=== PATIENT | male | born 1980 | race Caucasian/White ===

== ENCOUNTER 2020-07-01 01:13 | Inpatient (IN) | payer MEDICARE, MEDICAID ==
[~2020-07-01] VITALS: Ht 177.8 cm; Wt 90.9 kg
[2020-07-01] MEDS ORDERED: BISACODYL 10 MG SUPP PR PRN (02:30)
[2020-07-01] MEDS ORDERED: POLYETHYLENE GLYCOL 17 GM PACKET PO PRN (02:30)
[2020-07-01] MEDS ORDERED: ONDANSETRON ODT 4 MG PO PRN (02:30)
[2020-07-01] MEDS ORDERED: DOCUSATE 100 MG CAPSULE PO PRN (02:30)
[2020-07-01 02:48] VITALS: BP 129/86
[2020-07-01] MEDS ORDERED: PLEASE ENTER ALLERGIES MC SCH (03:00)
[2020-07-01 04:10] VITALS: BP 129/86
[2020-07-01 04:27] LABS: MICROSCOPIC NOT IND
[2020-07-01 07:20] VITALS: BP 121/78
[2020-07-01] MEDS: NICOTINE 14MG/24 HR PATCH.TD24 TD SCH (08:20)
[2020-07-01 08:29] LABS: FREE T4 (FREE THYROXINE) 0.83 ng/dL (0.76-1.46); LDL/HDL RATIO 1.1 (0.5-3.0)
[2020-07-01] MEDS ORDERED: ZIPRASIDONE 20MG CAPSULE PO PRN (14:00)
[2020-07-01] MEDS: OLANZAPINE 10 MG TABLET PO SCH ×2 (16:06→20:54)
[2020-07-01] MEDS: LORazepam 1MG TABLET PO PRN (17:36)
[2020-07-01 19:50] VITALS: BP 123/81
[2020-07-02 07:22] VITALS: BP 113/81
[2020-07-02] MEDS: OLANZAPINE 10 MG TABLET PO SCH (08:54)
[2020-07-02] MEDS: NICOTINE 14MG/24 HR PATCH.TD24 TD SCH (08:56)
[2020-07-02 19:28] VITALS: BP 120/78
[2020-07-02] MEDS: LORazepam 1MG TABLET PO PRN (20:19)
[2020-07-02] MEDS: OLANZAPINE 5 MG TABLET PO SCH (20:20)
[2020-07-02] MEDS ORDERED: OLANZAPINE 10 MG TABLET ONE (20:21)
[2020-07-03 07:27] VITALS: BP 99/64
[2020-07-03] MEDS: OLANZAPINE 5 MG TABLET PO SCH ×2 (09:04→20:07)
[2020-07-03] MEDS: NICOTINE 14MG/24 HR PATCH.TD24 TD SCH (09:05)
[2020-07-03] MEDS: CARBAMAZEPINE 200 MG TABLET PO SCH ×2 (11:21→20:11)
[2020-07-03] MEDS: ACETAMINOPHEN 325 MG TABLET PO PRN ×2 (11:27→20:11)
[2020-07-03 18:01] VITALS: BP 121/83
[2020-07-04 07:43] VITALS: BP 109/64
[2020-07-04] MEDS: OLANZAPINE 5 MG TABLET PO SCH ×2 (08:33→20:17)
[2020-07-04] MEDS: CARBAMAZEPINE 200 MG TABLET PO SCH ×2 (08:33→20:16)
[2020-07-04] MEDS: NICOTINE 14MG/24 HR PATCH.TD24 TD SCH (08:35)
[2020-07-04] MEDS: LORazepam 1MG TABLET PO PRN (15:45)
[2020-07-04 19:54] VITALS: BP 127/80
[2020-07-05 07:00] VITALS: BP 102/66
[2020-07-05] MEDS: OLANZAPINE 5 MG TABLET PO SCH ×2 (08:31→20:21)
[2020-07-05] MEDS: CARBAMAZEPINE 200 MG TABLET PO SCH ×2 (08:31→20:21)
[2020-07-05] MEDS: NICOTINE 14MG/24 HR PATCH.TD24 TD SCH (08:33)
[2020-07-05] MEDS: LORazepam 1MG TABLET PO PRN (11:27)
[2020-07-05 19:54] VITALS: BP 101/65
[2020-07-06 07:22] VITALS: BP 115/71
[2020-07-06] MEDS: OLANZAPINE 5 MG TABLET PO SCH ×2 (08:53→20:36)
[2020-07-06] MEDS: CARBAMAZEPINE 200 MG TABLET PO SCH ×2 (08:53→20:36)
[2020-07-06] MEDS: NICOTINE 14MG/24 HR PATCH.TD24 TD SCH (08:55)
[2020-07-06] MEDS: ACETAMINOPHEN 325 MG TABLET PO PRN (08:59)
[2020-07-06 19:55] VITALS: BP 109/63
[2020-07-07 07:25] VITALS: BP 106/72
[2020-07-07] MEDS: CARBAMAZEPINE 200 MG TABLET PO SCH ×2 (08:30→20:08)
[2020-07-07] MEDS: OLANZAPINE 5 MG TABLET PO SCH ×2 (08:31→20:07)
[2020-07-07] MEDS: NICOTINE 14MG/24 HR PATCH.TD24 TD SCH (08:32)
[2020-07-07] MEDS ORDERED: OLANZAPINE 10 MG TABLET ONE (08:35)
[2020-07-07 19:49] VITALS: BP 117/62
[2020-07-07] MEDS: LORazepam 1MG TABLET PO PRN (20:08)
[2020-07-08] MEDS: LORazepam 1MG TABLET PO PRN (00:19)
[2020-07-08 07:20] VITALS: BP 110/71
[2020-07-08] MEDS: OLANZAPINE 5 MG TABLET PO SCH ×2 (08:41→20:26)
[2020-07-08] MEDS: CARBAMAZEPINE 200 MG TABLET PO SCH ×2 (08:41→20:26)
[2020-07-08] MEDS: NICOTINE 14MG/24 HR PATCH.TD24 TD SCH (08:44)
[2020-07-08] MEDS: HALOPERIDOL 5 MG TABLET PO SCH ×3 (16:00→20:26)
[2020-07-08 19:21] VITALS: BP 117/78
[2020-07-09 07:00] VITALS: BP 93/61
[2020-07-09] MEDS: CARBAMAZEPINE 200 MG TABLET PO SCH ×2 (08:34→20:06)
[2020-07-09] MEDS: HALOPERIDOL 5 MG TABLET PO SCH ×3 (08:34→20:06)
[2020-07-09] MEDS: OLANZAPINE 5 MG TABLET PO SCH ×2 (08:34→20:06)
[2020-07-09] MEDS: NICOTINE 14MG/24 HR PATCH.TD24 TD SCH (08:35)
[2020-07-09] MEDS: LORazepam 1MG TABLET PO PRN (15:01)
[2020-07-09 19:38] VITALS: BP 126/82
[2020-07-10 07:13] VITALS: BP 116/73
[2020-07-10] MEDS: CARBAMAZEPINE 200 MG TABLET PO SCH ×2 (08:21→20:27)
[2020-07-10] MEDS: OLANZAPINE 5 MG TABLET PO SCH ×2 (08:21→20:27)
[2020-07-10] MEDS: HALOPERIDOL 5 MG TABLET PO SCH ×3 (08:21→20:27)
[2020-07-10] MEDS: NICOTINE 14MG/24 HR PATCH.TD24 TD SCH (08:22)
[2020-07-10] MEDS: LORazepam 1MG TABLET PO PRN ×2 (16:42→21:14)
[2020-07-10 19:32] VITALS: BP 135/83
[2020-07-11 07:03] VITALS: BP 117/72
[2020-07-11] MEDS: OLANZAPINE 5 MG TABLET PO SCH ×2 (09:05→20:04)
[2020-07-11] MEDS: HALOPERIDOL 5 MG TABLET PO SCH ×3 (09:05→20:04)
[2020-07-11] MEDS: CARBAMAZEPINE 200 MG TABLET PO SCH ×2 (09:05→20:04)
[2020-07-11] MEDS: NICOTINE 14MG/24 HR PATCH.TD24 TD SCH (09:06)
[2020-07-11] MEDS: LORazepam 1MG TABLET PO PRN (15:30)
[2020-07-11 19:51] VITALS: BP 135/84
[2020-07-12 07:28] VITALS: BP 124/78
[2020-07-12] MEDS: CARBAMAZEPINE 200 MG TABLET PO SCH ×2 (08:22→19:59)
[2020-07-12] MEDS: NICOTINE 14MG/24 HR PATCH.TD24 TD SCH (08:23)
[2020-07-12] MEDS: OLANZAPINE 5 MG TABLET PO SCH ×2 (08:23→19:59)
[2020-07-12] MEDS: HALOPERIDOL 5 MG TABLET PO SCH ×3 (08:23→20:00)
[2020-07-12] MEDS: LORazepam 1MG TABLET PO PRN ×2 (16:41→20:50)
[2020-07-12 19:45] VITALS: BP 153/92
[2020-07-12] MEDS: ACETAMINOPHEN 325 MG TABLET PO PRN (21:16)
[2020-07-13 07:57] VITALS: BP 121/72
[2020-07-13] MEDS: OLANZAPINE 5 MG TABLET PO SCH ×2 (08:14→20:23)
[2020-07-13] MEDS: CARBAMAZEPINE 200 MG TABLET PO SCH ×2 (08:15→20:23)
[2020-07-13] MEDS: NICOTINE 14MG/24 HR PATCH.TD24 TD SCH (08:15)
[2020-07-13] MEDS: HALOPERIDOL 5 MG TABLET PO SCH ×3 (08:15→20:23)
[2020-07-13] MEDS: LORazepam 1MG TABLET PO PRN (14:22)
[2020-07-13 20:02] VITALS: BP 145/76
[2020-07-14 07:00] VITALS: BP 122/82
[2020-07-14] MEDS: NICOTINE 14MG/24 HR PATCH.TD24 TD SCH (09:14)
[2020-07-14] MEDS: LORazepam 1MG TABLET PO PRN ×2 (09:15→21:48)
[2020-07-14] MEDS: OLANZAPINE 5 MG TABLET PO SCH ×2 (09:15→20:17)
[2020-07-14] MEDS: CARBAMAZEPINE 200 MG TABLET PO SCH ×2 (09:15→20:17)
[2020-07-14] MEDS: ACETAMINOPHEN 325 MG TABLET PO PRN (09:15)
[2020-07-14] MEDS: HALOPERIDOL 5 MG TABLET PO SCH ×3 (09:16→20:16)
[2020-07-14 20:07] VITALS: BP 122/87
[2020-07-15 07:28] VITALS: BP 110/78
[2020-07-15] MEDS: OLANZAPINE 5 MG TABLET PO SCH ×2 (09:15→20:32)
[2020-07-15] MEDS: NICOTINE 14MG/24 HR PATCH.TD24 TD SCH (09:15)
[2020-07-15] MEDS: LORazepam 1MG TABLET PO PRN ×2 (09:16→17:50)
[2020-07-15] MEDS: HALOPERIDOL 5 MG TABLET PO SCH ×3 (09:16→23:56)
[2020-07-15] MEDS: CARBAMAZEPINE 200 MG TABLET PO SCH ×2 (09:16→20:32)
[2020-07-15 19:07] VITALS: BP 128/85
[2020-07-16 07:36] VITALS: BP 135/82
[2020-07-16] MEDS: ACETAMINOPHEN 325 MG TABLET PO PRN (07:42)
[2020-07-16] MEDS: HALOPERIDOL 5 MG TABLET PO SCH ×3 (08:31→20:44)
[2020-07-16] MEDS: NICOTINE 14MG/24 HR PATCH.TD24 TD SCH (08:31)
[2020-07-16] MEDS: OLANZAPINE 5 MG TABLET PO SCH ×2 (08:31→20:43)
[2020-07-16] MEDS: CARBAMAZEPINE 200 MG TABLET PO SCH ×2 (08:32→20:44)
[2020-07-16] MEDS: LORazepam 1MG TABLET PO PRN (16:32)
[2020-07-16] MEDS ORDERED: HALOPERIDOL 5 MG TABLET PO ONE (16:53)
[2020-07-16] MEDS ORDERED: LORazepam 1MG TABLET PO ONE (16:54)
[2020-07-16] MEDS ORDERED: HALOPERIDOL 2 MG/ML ORAL SOL PO SCH (17:00)
[2020-07-16] MEDS ORDERED: HALOPERIDOL 1 MG TABLET PO SCH (17:00)
[2020-07-16 19:15] VITALS: BP 148/84
[2020-07-17] MEDS: LORazepam 1MG TABLET PO PRN ×2 (00:25→17:01)
[2020-07-17 07:41] VITALS: BP 108/71
[2020-07-17] MEDS: CARBAMAZEPINE 200 MG TABLET PO SCH ×2 (08:48→20:08)
[2020-07-17] MEDS: ACETAMINOPHEN 325 MG TABLET PO PRN ×2 (08:48→17:54)
[2020-07-17] MEDS: OLANZAPINE 5 MG TABLET PO SCH ×2 (08:49→20:09)
[2020-07-17] MEDS: HALOPERIDOL 5 MG TABLET PO SCH ×3 (08:49→20:09)
[2020-07-17] MEDS: NICOTINE 14MG/24 HR PATCH.TD24 TD SCH (08:49)
[2020-07-17 19:30] VITALS: BP 125/85
[2020-07-18 07:14] VITALS: BP 123/83
[2020-07-18] MEDS: CARBAMAZEPINE 200 MG TABLET PO SCH ×2 (09:42→20:45)
[2020-07-18] MEDS: ACETAMINOPHEN 325 MG TABLET PO PRN (09:42)
[2020-07-18] MEDS: OLANZAPINE 5 MG TABLET PO SCH (09:43)
[2020-07-18] MEDS: NICOTINE 14MG/24 HR PATCH.TD24 TD SCH (09:43)
[2020-07-18] MEDS: HALOPERIDOL 5 MG TABLET PO SCH ×3 (09:43→20:47)
[2020-07-18] MEDS: TRIHEXYPHENIDYL 2MG TABLET PO SCH ×2 (15:57→20:45)
[2020-07-18 19:28] VITALS: BP 152/92
[2020-07-18] MEDS: LORazepam 1MG TABLET PO PRN (22:59)
[2020-07-19 07:29] VITALS: BP 130/88
[2020-07-19] MEDS: TRIHEXYPHENIDYL 2MG TABLET PO SCH ×3 (09:00→20:40)
[2020-07-19] MEDS: CARBAMAZEPINE 200 MG TABLET PO SCH ×2 (09:00→20:41)
[2020-07-19] MEDS: LORazepam 1MG TABLET PO PRN ×2 (09:00→20:41)
[2020-07-19] MEDS: HALOPERIDOL 5 MG TABLET PO SCH (09:00)
[2020-07-19] MEDS: ACETAMINOPHEN 325 MG TABLET PO PRN ×2 (09:01→17:41)
[2020-07-19] MEDS: NICOTINE 14MG/24 HR PATCH.TD24 TD SCH (09:01)
[2020-07-19] MEDS: OLANZAPINE 5 MG TABLET PO SCH ×2 (11:46→20:41)
[2020-07-19 19:50] VITALS: BP 130/93
[2020-07-20] MEDS: CARBAMAZEPINE 200 MG TABLET PO SCH ×2 (07:32→20:28)
[2020-07-20] MEDS: ACETAMINOPHEN 325 MG TABLET PO PRN (07:32)
[2020-07-20] MEDS: TRIHEXYPHENIDYL 2MG TABLET PO SCH ×2 (07:32→20:27)
[2020-07-20] MEDS: LORazepam 1MG TABLET PO PRN ×2 (07:32→23:53)
[2020-07-20] MEDS: OLANZAPINE 5 MG TABLET PO SCH ×2 (07:32→20:28)
[2020-07-20] MEDS: NICOTINE 14MG/24 HR PATCH.TD24 TD SCH (07:32)
[2020-07-20 07:42] VITALS: BP 129/85
[2020-07-20 19:18] VITALS: BP 143/84
[2020-07-21 07:40] VITALS: BP 145/90
[2020-07-21] MEDS: NICOTINE 14MG/24 HR PATCH.TD24 TD SCH (08:30)
[2020-07-21] MEDS: TRIHEXYPHENIDYL 2MG TABLET PO SCH ×2 (08:30→20:33)
[2020-07-21] MEDS: ACETAMINOPHEN 325 MG TABLET PO PRN ×2 (08:31→18:05)
[2020-07-21] MEDS: CARBAMAZEPINE 200 MG TABLET PO SCH ×2 (08:31→20:33)
[2020-07-21] MEDS: OLANZAPINE 5 MG TABLET PO SCH ×2 (08:31→20:33)
[2020-07-21] MEDS: LORazepam 1MG TABLET PO PRN (18:05)
[2020-07-21 19:25] VITALS: BP 128/87
[2020-07-22 07:27] VITALS: BP 117/79
[2020-07-22] MEDS: TRIHEXYPHENIDYL 2MG TABLET PO SCH ×2 (08:33→20:25)
[2020-07-22] MEDS: OLANZAPINE 5 MG TABLET PO SCH ×2 (08:33→20:25)
[2020-07-22] MEDS: NICOTINE 14MG/24 HR PATCH.TD24 TD SCH (08:34)
[2020-07-22] MEDS: CARBAMAZEPINE 200 MG TABLET PO SCH ×2 (08:34→20:25)
[2020-07-22] MEDS: LORazepam 1MG TABLET PO PRN (15:23)
[2020-07-22 19:34] VITALS: BP 126/92
[2020-07-23 07:32] VITALS: BP 120/76
[2020-07-23] MEDS: OLANZAPINE 5 MG TABLET PO SCH ×2 (09:06→20:15)
[2020-07-23] MEDS: CARBAMAZEPINE 200 MG TABLET PO SCH ×2 (09:06→20:15)
[2020-07-23] MEDS: TRIHEXYPHENIDYL 2MG TABLET PO SCH ×2 (09:06→20:15)
[2020-07-23] MEDS: NICOTINE 14MG/24 HR PATCH.TD24 TD SCH (10:31)
[2020-07-23] MEDS: LORazepam 1MG TABLET PO PRN ×2 (11:27→19:17)
[2020-07-23] MEDS: HALOPERIDOL 5 MG TABLET PO PRN (19:30)
[2020-07-23 19:34] VITALS: BP 132/92
[2020-07-24 07:38] VITALS: BP 140/85
[2020-07-24] MEDS: OLANZAPINE 5 MG TABLET PO SCH ×2 (09:43→21:11)
[2020-07-24] MEDS: CARBAMAZEPINE 200 MG TABLET PO SCH ×2 (09:44→21:11)
[2020-07-24] MEDS: TRIHEXYPHENIDYL 2MG TABLET PO SCH ×2 (09:45→21:11)
[2020-07-24] MEDS: NICOTINE 14MG/24 HR PATCH.TD24 TD SCH (09:47)
[2020-07-24] MEDS: LORazepam 1MG TABLET PO PRN (09:51)
[2020-07-24 19:24] VITALS: BP 114/81
[2020-07-25 07:49] VITALS: BP 116/79
[2020-07-25] MEDS: OLANZAPINE 5 MG TABLET PO SCH ×2 (08:38→21:02)
[2020-07-25] MEDS: CARBAMAZEPINE 200 MG TABLET PO SCH ×2 (08:38→21:02)
[2020-07-25] MEDS: TRIHEXYPHENIDYL 2MG TABLET PO SCH ×2 (08:38→21:02)
[2020-07-25] MEDS: NICOTINE 14MG/24 HR PATCH.TD24 TD SCH (08:40)
[2020-07-25] MEDS: LORazepam 1MG TABLET PO PRN ×2 (15:08→19:32)
[2020-07-25 19:30] VITALS: BP 137/97
[2020-07-25] MEDS: ACETAMINOPHEN 325 MG TABLET PO PRN (19:32)
[2020-07-26 07:42] VITALS: BP 121/76
[2020-07-26] MEDS: CARBAMAZEPINE 200 MG TABLET PO SCH ×2 (09:15→20:14)
[2020-07-26] MEDS: TRIHEXYPHENIDYL 2MG TABLET PO SCH ×2 (09:15→20:14)
[2020-07-26] MEDS: OLANZAPINE 5 MG TABLET PO SCH ×2 (09:15→20:14)
[2020-07-26] MEDS: NICOTINE 14MG/24 HR PATCH.TD24 TD SCH (09:16)
[2020-07-26] MEDS: ACETAMINOPHEN 325 MG TABLET PO PRN (15:26)
[2020-07-26] MEDS: LORazepam 1MG TABLET PO PRN (19:18)
[2020-07-26 19:30] VITALS: BP 103/69
[2020-07-27 07:37] VITALS: BP 125/89
[2020-07-27] MEDS: LORazepam 1MG TABLET PO PRN ×2 (07:59→13:50)
[2020-07-27] MEDS: TRIHEXYPHENIDYL 2MG TABLET PO SCH ×2 (08:31→21:11)
[2020-07-27] MEDS: CARBAMAZEPINE 200 MG TABLET PO SCH ×2 (08:31→21:11)
[2020-07-27] MEDS: OLANZAPINE 5 MG TABLET PO SCH ×2 (08:32→21:11)
[2020-07-27] MEDS: NICOTINE 14MG/24 HR PATCH.TD24 TD SCH (10:21)
[2020-07-27 19:30] VITALS: BP 134/80
[2020-07-28 07:32] VITALS: BP 116/78
[2020-07-28] MEDS: TRIHEXYPHENIDYL 2MG TABLET PO SCH ×2 (08:00→20:16)
[2020-07-28] MEDS: NICOTINE 14MG/24 HR PATCH.TD24 TD SCH (08:34)
[2020-07-28] MEDS: OLANZAPINE 5 MG TABLET PO SCH ×2 (08:35→20:16)
[2020-07-28] MEDS: CARBAMAZEPINE 200 MG TABLET PO SCH ×2 (08:35→20:16)
[2020-07-28] MEDS: HALOPERIDOL 5 MG TABLET PO PRN (16:30)
[2020-07-28] MEDS: LORazepam 1MG TABLET PO PRN ×2 (17:57→22:07)
[2020-07-28 19:55] VITALS: BP 138/95
[2020-07-29 07:43] VITALS: BP 111/78
[2020-07-29] MEDS: TRIHEXYPHENIDYL 2MG TABLET PO SCH ×2 (09:18→20:21)
[2020-07-29] MEDS: OLANZAPINE 5 MG TABLET PO SCH ×2 (09:18→20:21)
[2020-07-29] MEDS: CARBAMAZEPINE 200 MG TABLET PO SCH ×2 (09:18→20:21)
[2020-07-29] MEDS: LORazepam 1MG TABLET PO PRN ×2 (09:18→18:23)
[2020-07-29] MEDS: NICOTINE 14MG/24 HR PATCH.TD24 TD SCH (09:21)
[2020-07-29] MEDS: ACETAMINOPHEN 325 MG TABLET PO PRN ×2 (10:57→18:26)
[2020-07-29 19:39] VITALS: BP 145/94
[2020-07-30 07:27] VITALS: BP 116/79
[2020-07-30] MEDS: OLANZAPINE 5 MG TABLET PO SCH ×2 (08:30→20:18)
[2020-07-30] MEDS: CARBAMAZEPINE 200 MG TABLET PO SCH ×2 (08:30→20:18)
[2020-07-30] MEDS: TRIHEXYPHENIDYL 2MG TABLET PO SCH ×2 (08:30→20:18)
[2020-07-30] MEDS: NICOTINE 14MG/24 HR PATCH.TD24 TD SCH (08:32)
[2020-07-30] MEDS: LORazepam 1MG TABLET PO PRN (11:42)
[2020-07-30 19:35] VITALS: BP 137/92
[2020-07-30] MEDS: ACETAMINOPHEN 325 MG TABLET PO PRN (19:41)
[2020-07-31] MEDS: LORazepam 1MG TABLET PO PRN ×2 (07:35→15:07)
[2020-07-31] MEDS: ACETAMINOPHEN 325 MG TABLET PO PRN (07:36)
[2020-07-31 07:54] VITALS: BP 117/75
[2020-07-31] MEDS: OLANZAPINE 5 MG TABLET PO SCH ×2 (08:34→20:02)
[2020-07-31] MEDS: CARBAMAZEPINE 200 MG TABLET PO SCH ×2 (08:34→20:02)
[2020-07-31] MEDS: TRIHEXYPHENIDYL 2MG TABLET PO SCH ×2 (08:34→20:02)
[2020-07-31] MEDS: NICOTINE 14MG/24 HR PATCH.TD24 TD SCH (08:36)
[2020-07-31 20:39] VITALS: BP 113/68
[2020-08-01 07:16] VITALS: BP 116/81
[2020-08-01] MEDS: OLANZAPINE 5 MG TABLET PO SCH ×2 (09:20→20:07)
[2020-08-01] MEDS: TRIHEXYPHENIDYL 2MG TABLET PO SCH ×2 (09:20→20:06)
[2020-08-01] MEDS: CARBAMAZEPINE 200 MG TABLET PO SCH ×2 (09:20→20:06)
[2020-08-01] MEDS: NICOTINE 14MG/24 HR PATCH.TD24 TD SCH (09:21)
[2020-08-01] MEDS: LORazepam 1MG TABLET PO PRN ×2 (09:21→15:53)
[2020-08-01] MEDS: ACETAMINOPHEN 325 MG TABLET PO PRN (09:51)
[2020-08-01] MEDS: HALOPERIDOL 5 MG TABLET PO PRN (15:53)
[2020-08-01 19:33] VITALS: BP 148/89
[2020-08-02 07:30] VITALS: BP 123/79
[2020-08-02] MEDS: CARBAMAZEPINE 200 MG TABLET PO SCH ×2 (08:53→19:58)
[2020-08-02] MEDS: TRIHEXYPHENIDYL 2MG TABLET PO SCH ×2 (08:53→19:57)
[2020-08-02] MEDS: OLANZAPINE 5 MG TABLET PO SCH ×2 (08:53→19:58)
[2020-08-02] MEDS: NICOTINE 14MG/24 HR PATCH.TD24 TD SCH (08:53)
[2020-08-02] MEDS: LORazepam 1MG TABLET PO PRN ×2 (08:53→17:26)
[2020-08-02] MEDS: ACETAMINOPHEN 325 MG TABLET PO PRN ×2 (09:15→20:55)
[2020-08-02] MEDS: HALOPERIDOL 5 MG TABLET PO PRN (18:20)
[2020-08-02 19:52] VITALS: BP 130/84
[2020-08-03 07:35] VITALS: BP 116/83
[2020-08-03] MEDS: LORazepam 1MG TABLET PO PRN ×2 (07:40→19:52)
[2020-08-03] MEDS: ACETAMINOPHEN 325 MG TABLET PO PRN ×2 (07:42→19:52)
[2020-08-03] MEDS: NICOTINE 14MG/24 HR PATCH.TD24 TD SCH (08:29)
[2020-08-03] MEDS: CARBAMAZEPINE 200 MG TABLET PO SCH ×2 (08:30→19:52)
[2020-08-03] MEDS: OLANZAPINE 5 MG TABLET PO SCH ×2 (08:31→19:52)
[2020-08-03] MEDS: TRIHEXYPHENIDYL 2MG TABLET PO SCH ×2 (08:31→19:52)
[2020-08-03 19:36] VITALS: BP 128/85
[2020-08-03] MEDS: HALOPERIDOL 5 MG TABLET PO PRN (21:51)
[2020-08-04 07:44] VITALS: BP 110/75
[2020-08-04] MEDS: NICOTINE 14MG/24 HR PATCH.TD24 TD SCH (08:25)
[2020-08-04] MEDS: TRIHEXYPHENIDYL 2MG TABLET PO SCH ×2 (08:25→20:08)
[2020-08-04] MEDS: OLANZAPINE 5 MG TABLET PO SCH ×2 (08:26→20:08)
[2020-08-04] MEDS: CARBAMAZEPINE 200 MG TABLET PO SCH ×2 (08:26→20:09)
[2020-08-04] MEDS: ACETAMINOPHEN 325 MG TABLET PO PRN ×2 (09:20→20:09)
[2020-08-04] MEDS: LORazepam 1MG TABLET PO PRN ×2 (15:19→22:45)
[2020-08-04] MEDS: HALOPERIDOL 5 MG TABLET PO PRN (16:11)
[2020-08-04 19:38] VITALS: BP 132/85
[2020-08-05] MEDS: ACETAMINOPHEN 325 MG TABLET PO PRN ×2 (02:53→20:08)
[2020-08-05 07:40] VITALS: BP 118/82
[2020-08-05] MEDS: CARBAMAZEPINE 200 MG TABLET PO SCH ×2 (08:27→20:08)
[2020-08-05] MEDS: TRIHEXYPHENIDYL 2MG TABLET PO SCH ×2 (08:27→20:08)
[2020-08-05] MEDS: OLANZAPINE 5 MG TABLET PO SCH ×2 (08:28→20:08)
[2020-08-05] MEDS: NICOTINE 14MG/24 HR PATCH.TD24 TD SCH (08:30)
[2020-08-05] MEDS ORDERED: OLAN5TAB9 PO (14:59)
[2020-08-05] MEDS ORDERED: TRIH2TAB3 PO (14:59)
[2020-08-05] MEDS ORDERED: NICO-486 TD (14:59)
[2020-08-05] MEDS ORDERED: CARB200T4 PO (14:59)
[2020-08-05] MEDS: LORazepam 1MG TABLET PO PRN (15:08)
[2020-08-05 20:10] VITALS: BP 144/93
[2020-08-06 07:09] VITALS: BP 114/79
[2020-08-06] MEDS: CARBAMAZEPINE 200 MG TABLET PO SCH (08:19)
[2020-08-06] MEDS: TRIHEXYPHENIDYL 2MG TABLET PO SCH (08:19)
[2020-08-06] MEDS: OLANZAPINE 5 MG TABLET PO SCH (08:20)
[2020-08-06] MEDS: NICOTINE 14MG/24 HR PATCH.TD24 TD SCH (08:21)
== END 2020-08-06 09:01 | disposition home or self-care (01) | DRG 885 ==
LOC: 3E 02:43
PROVIDERS: ADMIT Psychiatry & Neurology Psychosomatic Medicine; ATTEND Psychiatry & Neurology Psychosomatic Medicine
DX: F20.0 Paranoid schizophrenia (principal); E78.5 Hyperlipidemia, unspecified; F20.2 Catatonic schizophrenia; F41.0 Panic disorder [episodic paroxysmal anxiety]; F17.210 Nicotine dependence, cigarettes, uncomplicated; G47.00 Insomnia, unspecified; Z79.899 Other long term (current) drug therapy; Z71.6 Tobacco abuse counseling
CPT/HCPCS: 36415; 71045; 80061; 81003; 82607; 84439; 84443; 93005; Q0162